=== PATIENT | female | born 1950 | race Caucasian/White ===

== ENCOUNTER 2017-03-08 12:41 | Inpatient (IN) | payer MEDICARE, BC, OTHER ==
[~2017-03-08] VITALS: Ht 170.2 cm; Wt 125.8 kg
[~2017-03-08 12:41] MED LIST: BUPIVACAINE/PF 0.5% ONE
[2017-03-08] MEDS ORDERED: VANCOMYCIN PER PHARMACY MC PRN (13:30)
[2017-03-08] MEDS ORDERED: PLEASE ENTER ALLERGIES MC SCH ×2 (13:30)
[2017-03-08] MEDS ORDERED: PLEASE ENTER HEIGHT AND WEIGHT MC SCH (13:30)
[2017-03-08] MEDS ORDERED: LORA10TA3 PO (14:07)
[2017-03-08] MEDS ORDERED: ROPI2TAB4 PO (14:07)
[2017-03-08] MEDS ORDERED: CYCL-259 PO (14:07)
[2017-03-08] MEDS ORDERED: AMLO5TAB2 PO (14:07)
[2017-03-08] MEDS ORDERED: POTA20TA89 PO (14:07)
[2017-03-08] MEDS ORDERED: LEVO175T2 PO (14:07)
[2017-03-08] MEDS ORDERED: FLUT1BLS INH (14:07)
[2017-03-08] MEDS ORDERED: METO50TA82 PO (14:07)
[2017-03-08] MEDS ORDERED: MIDAZOLAM 1 MG/ML, 2ML ONE (14:12)
[2017-03-08] MEDS ORDERED: FENTANYL PF 100 MCG/2ML ONE ×2 (14:12→16:02)
[2017-03-08] MEDS ORDERED: LACTATED RINGERS 1,000 ML IV SCH (14:13)
[2017-03-08] MEDS ORDERED: LIDOCAINE 1%, 2ML ONE (14:16)
[2017-03-08 14:17] VITALS: BP 175/101
[2017-03-08] MEDS ORDERED: METH2.5T PO (14:29)
[2017-03-08] MEDS ORDERED: VANCOMYCIN 1,800 MG in SODIUM CHLORIDE 0.9% 250 ML IV ONE (14:30)
[2017-03-08] MEDS ORDERED: LIDOCAINE 1%, 2ML SQ PRN (14:30)
[2017-03-08] MEDS: SODIUM CHLORIDE 0.9% 1,000 ML IV SCH (15:07)
[2017-03-08] MEDS ORDERED: CEFAZOLIN 1,000 MG ONE (15:12)
[2017-03-08] MEDS ORDERED: DEXAMETHASONE 4 MG/ML, 1ML ONE (15:12)
[2017-03-08] MEDS ORDERED: SUCCINYLCHOLINE 20 MG/ML, 10ML ONE (15:12)
[2017-03-08] MEDS ORDERED: NEOSTIGMINE 1 MG/ML, 10ML ONE (15:12)
[2017-03-08] MEDS ORDERED: ROCURONIUM 10 MG/ML ONE (15:12)
[2017-03-08] MEDS ORDERED: GLYCOPYRROLATE 0.2MG/1ML, 5ML ONE (15:12)
[2017-03-08] MEDS ORDERED: PROPOFOL 10 MG/ML, 20ML ONE (15:12)
[2017-03-08] MEDS ORDERED: ONDANSETRON 2MG/ML, 2ML ONE (15:12)
[2017-03-08] MEDS ORDERED: MAGNESIUM HYDROXIDE 8%, 30ML UDC PO PRN (15:30)
[2017-03-08] MEDS: CEFAZOLIN PMX 2GM/50ML 50 ML IVPB SCH ×2 (15:30→23:31)
[2017-03-08] MEDS ORDERED: HYDROmorphone 1 MG/ML, 1ML IM PRN (15:30)
[2017-03-08] MEDS ORDERED: BISACODYL 10 MG SUPP PR PRN (15:30)
[2017-03-08] MEDS ORDERED: ONDANSETRON 2MG/ML, 2ML IV PRN (15:30)
[2017-03-08] MEDS: OXYcodone/APAP 5/325MG TABLET PO SCH ×2 (15:30→22:09)
[2017-03-08] MEDS ORDERED: DIPHENHYDRAMINE 25 MG CAPSULE PO PRN (15:30)
[2017-03-08] MEDS ORDERED: SENNA/DOCUSATE TABLET PO PRN (15:30)
[2017-03-08] MEDS ORDERED: ACETAMINOPHEN 325 MG TABLET PO PRN (16:00)
[2017-03-08] MEDS: CYCLOBENZAPRINE 10 MG TABLET PO SCH ×2 (16:00→21:21)
[2017-03-08] MEDS ORDERED: ALBUTEROL/IPRATROPIUM 2.5MG/0.5MG, 3 ML NPPB PRN (16:00)
[2017-03-08] MEDS ORDERED: PROMETHAZINE 25 MG/ML, 1ML IV PRN (16:00)
[2017-03-08] MEDS ORDERED: KETOROLAC 30 MG/1 ML IV PRN ×2 (16:00)
[2017-03-08] MEDS ORDERED: ONDANSETRON 2MG/ML, 2ML IVPush PRN (16:00)
[2017-03-08] MEDS ORDERED: hydrALAzine 20 MG/ML, 1ML IV PRN (16:00)
[2017-03-08] MEDS ORDERED: MEPERIDINE/PF 25MG/0.5ML IVPush PRN (16:00)
[2017-03-08] MEDS ORDERED: FENTANYL PF 100 MCG/2ML IV PRN (16:00)
[2017-03-08] MEDS ORDERED: MIDAZOLAM 1 MG/ML, 2ML IV PRN (16:00)
[2017-03-08] MEDS ORDERED: LABETALOL 5MG/ML, 20ML IV PRN (16:00)
[2017-03-08] MEDS ORDERED: DIAZEPAM 5 MG/ML, 2ML IVPush PRN (16:00)
[2017-03-08] MEDS ORDERED: HYDROmorphone 1 MG/ML, 1ML IV PRN (16:00)
[2017-03-08] MEDS ORDERED: OXYcodone 5 MG/5 ML ORAL.SOL UDC PO PRN (16:00)
[2017-03-08] MEDS ORDERED: ACETAMINOPHEN 650 MG/20.3 ML UDC ONE (18:23)
[2017-03-08] MEDS ORDERED: OXYcodone 5 MG/5 ML ORAL.SOL UDC ONE (18:24)
[2017-03-08] MEDS ORDERED: ROPINIROLE 1MG TABLET PO SCH (21:00)
[2017-03-08] MEDS: DOCUSATE 100 MG CAPSULE PO SCH (21:20)
[2017-03-08] MEDS: METOPROLOL TARTRATE 50 MG TABLET PO SCH (21:21)
[2017-03-08] MEDS: POTASSIUM CHLORIDE 20 MEQ TAB.ER.PRT PO SCH (21:21)
[2017-03-08 22:59] VITALS: BP 138/70
[2017-03-08 23:04] VITALS: BP 139/69
[2017-03-09] MEDS: OXYcodone/APAP 5/325MG TABLET PO SCH ×3 (02:21→09:35)
[2017-03-09 03:17] VITALS: BP 133/59
[2017-03-09] MEDS ORDERED: LEVOTHYROXINE 175 MCG TABLET PO SCH (06:00)
[2017-03-09 07:04] VITALS: BP 125/66
[2017-03-09] MEDS: SODIUM CHLORIDE 0.9% 1,000 ML IV SCH (08:00)
[2017-03-09] MEDS: DOCUSATE 100 MG CAPSULE PO SCH (09:00)
[2017-03-09] MEDS ORDERED: AMLODIPINE 5 MG TABLET PO SCH (09:00)
[2017-03-09] MEDS ORDERED: LORATADINE 10 MG TABLET PO SCH (09:00)
[2017-03-09] MEDS ORDERED: FLUTICASONE/VILANTEROL 200-25MCG/INH INH SCH (09:00)
[2017-03-09] MEDS: CEFAZOLIN PMX 2GM/50ML 50 ML IVPB SCH (09:28)
[2017-03-09] MEDS: POTASSIUM CHLORIDE 20 MEQ TAB.ER.PRT PO SCH (09:28)
[2017-03-09] MEDS: CYCLOBENZAPRINE 10 MG TABLET PO SCH (09:29)
[2017-03-09] MEDS: METOPROLOL TARTRATE 50 MG TABLET PO SCH (09:29)
[2017-03-09 11:09] VITALS: BP 135/78
== END 2017-03-09 11:40 | disposition home or self-care (01) | DRG 483 ==
LOC: ORIP 12:41 → 4NOR 19:55 → DCLOUNGE 03-09 11:10
PROVIDERS: ADMIT Orthopaedic Surgery; ATTEND Orthopaedic Surgery
PROC: 0LS30ZZ Reposition Right Upper Arm Tendon, Open Approach (ICD-10-PCS; 2017-03-08)
PROC: 0RRJ00Z Replacement of Right Shoulder Joint with Reverse Ball and Socket Synthetic Substitute, Open Approach (ICD-10-PCS; principal; 2017-03-08 16:30)
DX: M12.511 Traumatic arthropathy, right shoulder (principal); Z68.41 Body mass index [BMI] 40.0-44.9, adult; J44.9 Chronic obstructive pulmonary disease, unspecified; E66.01 Morbid (severe) obesity due to excess calories; I10 Essential (primary) hypertension; Z87.891 Personal history of nicotine dependence
CPT/HCPCS: 87081; C1713; C1776; J0690; J1100; J2250; J2405; J2704; J2710; J3010; J3370; J3490; C1769; J0330; J7050; J7120